=== PATIENT | female | born 1995 | race Caucasian/White ===

== ENCOUNTER → 2018-11-15 | Outpatient (CLI) | payer OTHER ==
--- NOTE | 2018-11-15 14:36 | REP ---
RIGHT KNEE RADIOGRAPHS: Five views. HISTORY: Right knee pain. No known injury. FINDINGS: Clothing artifact is seen over the distal thigh. Four views of the right knee show normal bones, joints, and soft tissues. No fracture or joint effusion is seen. No erosive change is seen. IMPRESSION: Negative right knee radiographs. Electronically Signed by Javier Porter MD 11/15/2018 06:18 P
== END ==
LOC: M WUC 09:25
PROVIDERS: ATTEND Physician Assistant
DX: M25.561 Pain in right knee (principal)

== ENCOUNTER → 2018-12-13 | Outpatient (CLI) | payer OTHER ==
--- NOTE | 2018-12-13 09:11 | REP ---
MRI RIGHT KNEE: TECHNIQUE: Axial proton density fat saturation, sagittal proton density T2 STIR, water excitation, coronal proton density, proton density fat saturation. Menisci are intact with no evidence of a tear. The cruciate and collateral ligaments are intact. The extensor mechanism is intact. The medial and lateral patellar retinacula are intact. The cartilaginous surfaces are smooth with no osteochondral defect. There is no bone marrow edema or occult fracture. There is a small joint effusion with a very small amount of fluid extending into the medial popliteal fossa between the semimembranosus and medial head of the gastrocnemius. The remainder of the study is unremarkable. IMPRESSION: Small joint effusion. No meniscal tear. The cruciate and collateral ligaments are intact. No osteochondral defect. Electronically Signed by Edmond Willoughby MD 12/13/2018 07:41 P
== END ==
LOC: M RAD 07:09
PROVIDERS: ATTEND Orthopaedic Surgery Sports Medicine
DX: M25.561 Pain in right knee (principal); M25.461 Effusion, right knee